=== PATIENT | female | born 1990 | race Two or more races ===

== ENCOUNTER 2021-01-04 10:08 | Day surgery (SDC) | payer OTHER | END 2021-01-05 07:30 | disposition home or self-care (01) | LOC: CIR.AMB 10:08 | PROVIDERS: ATTEND Obstetrics & Gynecology | DX: N84.0 Polyp of corpus uteri (principal); Z20.822 Contact with and (suspected) exposure to COVID-19 ==

== ENCOUNTER 2021-05-30 08:12 | Outpatient (CLI) | payer OTHER | END 2021-05-30 08:21 | disposition home or self-care (01) | LOC: RX STUDY 08:12 | PROVIDERS: ATTEND Obstetrics & Gynecology | DX: N88.8 Other specified noninflammatory disorders of cervix uteri (principal) ==

== ENCOUNTER → 2025-02-19 | Emergency (ER) | payer OTHER ==
[~2025-02-19] VITALS: Ht 167.6 cm; Wt 64.4 kg
[~2025-02-19] MED LIST: OBSTETRIX DHA1 EAC1
== END | disposition left against medical advice (07) ==
LOC: ER 21:09
DX: Z53.21 Procedure and treatment not carried out due to patient leaving prior to being seen by health care provider (principal)

== ENCOUNTER 2025-08-27 11:48 | Outpatient (CLI) | payer OTHER ==
[2025-08-27 11:07] VITALS: BP 107/70
[2025-08-27] MEDS ORDERED: RINGERS SOLUTION,LACTATED 1,000 ML IV SCH (12:00)
[2025-08-27 12:18] LABS: BASO % 0.3 % (0.1-1.2); EOS # 0.06 (0.04-0.54); EOS % 0.6 % (0.7-7.0); LYMPH # 1.50 (1.18-3.74); LYMPH % 16.2 % (19.3-53.1); MEAN PLATELET VOLUME 10.50 fl (9.4-12.4); MONO # 0.79 (0.24-0.82); MONO % 8.5 % (4.7-12.5); NEUT # 6.78 (1.56-6.13); NEUT % 73.2 % (34.0-71.1); RED CELL DISTRIBUTION WIDTH 13.3 % (11.6-14.4)
[2025-08-27] MEDS ORDERED: VITAMIN C100 MG PO (12:22)
[2025-08-27 13:15] VITALS: BP 90/57
[2025-08-27 14:28] VITALS: BP 90/57
[2025-08-27 14:45] LABS: ALT/SGPT 32.0 U/L (12-78); AST/SGOT 18.0 U/L (15-37); BILIRUBIN TOTAL 0.4 mg/dL (0.3-1.2); BUN CREA RATIO 21.0 (7.0-25.0); CREATININE SERUM 0.43 mg/dL (0.55-1.02); GFR 166.14; GLOBULINA 3.5 G/DL (2.4-3.5); GLUCOSE FASTING 98.0 mg/dL (65-100); OSMOLALITY SERUM 282.0 MOSM/KG (275-295)
== END 2025-08-27 14:39 | disposition home or self-care (01) ==
LOC: OBS/DEL 11:48
PROVIDERS: ATTEND Obstetrics & Gynecology
DX: O26.893 Other specified pregnancy related conditions, third trimester (principal); Z3A.33 33 weeks gestation of pregnancy